=== PATIENT | female | born 1950 ===

== ENCOUNTER 2017-05-06 15:58 | Emergency (ER) | payer MEDICAID ==
[~2017-05-06] VITALS: Ht 170.2 cm; Wt 62.1 kg
[2017-05-06] MEDS ORDERED: ASPI81TA31 PO (16:10)
[2017-05-06] MEDS ORDERED: MORPHINE SULFATE 2 MG/1 ML DISP.SYRIN IV ONE ×2 (16:15→17:45)
[2017-05-06] MEDS ORDERED: ONDANSETRON 4 MG/2 ML VIAL IV ONE (16:15)
[2017-05-06] MEDS ORDERED: MORPHINE SULFATE 2 MG/1 ML DISP.SYRIN ONE ×2 (16:26→17:54)
[2017-05-06] MEDS ORDERED: ONDANSETRON 4 MG/2 ML VIAL ONE (16:26)
--- NOTE | 2017-05-06 16:35 | NUR ---
PT IS IN BED 2B. DR SANTOS EVALUATED THE PT.
[2017-05-06] MEDS ORDERED: CYCLOBENZAPRINE HCL 10 MG TABLET ONE (18:49)
[2017-05-06] MEDS ORDERED: OXYCODONE/APAP 5-325 MG TABLET ONE (18:49)
--- NOTE | 2017-05-06 18:55 | NUR ---
PT WAS D/C TO HOME. D/C INSTRUCTIONS GIVEN TO THE PT BY DR SANTOS.
[2017-05-06 18:56] VITALS: BP 123/88
[2017-05-06] MEDS ORDERED: OXYCODONE/APAP 5-325 MG TABLET PO ONE (19:00)
[2017-05-06] MEDS ORDERED: CYCLOBENZAPRINE HCL 10 MG TABLET PO ONE (19:00)
== END 2017-05-06 18:57 | disposition home or self-care (01) ==
LOC: ER 15:58
DX: S22.20XA Unspecified fracture of sternum, initial encounter for closed fracture (principal); Z79.82 Long term (current) use of aspirin; V43.52XA Car driver injured in collision with other type car in traffic accident, initial encounter; Y93.89 Activity, other specified; Y92.410 Unspecified street and highway as the place of occurrence of the external cause; Y99.8 Other external cause status
CPT/HCPCS: 71250; 93005; A4663; J2270; J2405